=== PATIENT | male | born 1950 | race Caucasian/White ===

== ENCOUNTER → 2016-10-03 | Outpatient (CLI) | payer MEDICARE ==
[~2016-10-03] MED LIST: AMOX1TAB11 PO; CEPH-507 PO; CHLR10C PO; HLP5T PO; MULT1TAB PO; NO HOME MEDS; SIMV40TA2 PO
[2016-10-03 09:21] LABS: ALBUMIN 4.8 g/dL (3.4-5.0); TOTAL PROTEIN 8.5 g/dL (6.4-8.5)
== END ==
LOC: LAB 08:35
PROVIDERS: ATTEND Nurse Practitioner Family
DX: E78.2 Mixed hyperlipidemia (principal)
CPT/HCPCS: 36415; 80061; 80076